=== PATIENT | male | born 1930 | race Caucasian/White ===

== ENCOUNTER 2017-05-04 20:00 | Observation (INO) | payer OTHER ==
[~2017-05-04] VITALS: Ht 167.6 cm; Wt 64.9 kg
[~2017-05-04 20:00] MED LIST: CALC500C70 PO; FIBER PO; MULT-513 PO
[2017-05-04] MEDS ORDERED: ASPIRIN 81 MG CHEW PO STA (20:19)
[2017-05-04 20:57] LABS: BASO % 0.4 %; BASO ABS # 0.02 K/uL (0-0.2); COMPLETE YES; EOS % 3.1 %; IG% 0.2 %; LYMPH % 24.2 %; LYMPH ABS # 1.17 K/uL (1.2-3.4); MEAN CELL VOLUME 90.7 fL (80-100); MEAN CORPUSCULAR HEMOGLOBIN 30.6 pg (25-34); MEAN CORPUSCULAR HGB CONC 33.7 g/dl (32-36); MONO % 4.8 %; NEUT % 67.3 %; PLATELET COUNT 217 K/uL (130-400); RED BLOOD COUNT 3.86 M/uL (4.7-6.1); WHITE BLOOD COUNT 4.83 K/uL (4.8-10.8)
--- NOTE | 2017-05-04 21:04 | DIAGNOSTIC IMAGING REPORT ---
CHEST ONE VIEW PORTABLE CLINICAL HISTORY: Chest pain. COMPARISON STUDY: Chest radiograph April 25, 2015. FINDINGS: There is no pneumothorax or pleural effusion. There is no consolidation to suggest pneumonia. Pulmonary vascularity is normal. Cardiomediastinal silhouette is normal. The appearance of the chest is unchanged. IMPRESSION: No acute cardiopulmonary findings. Electronically signed by: Richy Patricio M.D. 05/04/2017 9:03 PM Dictated Date/Time: 05/04/2017 9:02 PM
[2017-05-04 21:21] LABS: BLOOD UREA NITROGEN 16 mg/dl (7-18); BUN/CREATININE RATIO 16.7 (10-20); CALCIUM 8.6 mg/dl (8.5-10.1); CARBON DIOXIDE 25 mmol/L (21-32); CHLORIDE 110 mmol/L (98-107); CREATININE 0.95 mg/dl (0.60-1.40); GLUCOSE 90 mg/dl (70-99); POTASSIUM 3.8 mmol/L (3.5-5.1); SODIUM 143 mmol/L (136-145)
[2017-05-04 21:26] LABS: CKMB/CK RATIO 3.7 (0-3.0)
[2017-05-04] MEDS ORDERED: ACETAMINOPHEN 325 MG TAB PO PRN (23:15)
[2017-05-04] MEDS ORDERED: ONDANSETRON INJ 2 MG/ML 2 ML VIAL IV PRN (23:15)
[2017-05-04] MEDS ORDERED: NITROGLYCERIN 0.4 MG SL PER TAB CHARGE SL PRN (23:15)
--- NOTE | 2017-05-04 23:34 | History and Physical ---
History & Physical Date & Time of Service: May 04, 2017 at 22:47 Chief Complaint: Chest Pain, High Bp Primary Care Physician: Arnoldo Locke M.D. History of Present Illness Source: patient Mr Farris is an 87 year old male who presents with chest pain to the ER. Site - across the front of his chest Onset - 1700 yesterday, [id number] today Character - heavy pressure Radiation - none Associated - No nausea, diaphoresis or shortness of breath. He is concerned his sBP was raised on both of these occasions to approx. 190 Timing - lasted for 10 minutes, gone by the time he arrived in ER Exacerbating - worse on exertion Severity - 2-3/10 at first, worse 5/10, currently no pain Called PCP this morning but couldn't get an appointment. Appeared to improve however but again on exertion around sBP 193. He denies any orthopnea, PND or claudication. Had similar chest pains 4-5 years ago - checked by his PCP and diagnosed with muscle spasm. Went away in a couple of days. Unsure whether this feels the same. 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) Immunizations History of Influenza Vaccine: N/A History of Tetanus Vaccine?: Yes Tetanus Immunization Date: May 20, 2007 History of Pneumococcal: Yes Pneumococcal Date: May 20, 2005 History of Hepatitis B Vaccine: No Multi-Drug Resistant Organisms History of MDRO: No Allergies Coded Allergies: No Known Allergies (Verified , 06/08/06) Uncoded Allergies: NKA (Allergy, Unknown, 03/19/15) No Known Allergies Home Medications Scheduled Calcium/Vitamin D (Os-Vince 500 Plus D), 2 TAB PO DAILY Multivitamins/Minerals (Mvi With Minerals), 1 TAB PO DAILY [Fiber], 2 TABLETS PO DAILY Review of Systems Constitutional: No fever, No chills Eyes: No worsening of vision ENT: No hearing loss Respiratory: No cough, No sputum, No wheezing, No shortness of breath Cardiovascular: No chest pain, No orthopnea Abdomen: No pain, No nausea, No vomiting, No diarrhea, No constipation, No GI bleeding Musculoskeletal: No joint pain, No muscle pain Genitourinary - Male: No hematuria, No dysuria, No urinary frequency, No urinary urgency Integumentary: No rash, No itch Physical Exam Vital Signs Date Time Temp Pulse Resp B/P (MAP) Pulse Ox O2 Delivery O2 Flow Rate FiO2 05/04/17 21:42 61 15 151/70 100 Room Air 05/04/17 20:29 Room Air 05/04/17 20:23 73 05/04/17 20:02 36.8 86 20 152/84 96 Room Air General Appearance: WD/WN, no apparent distress Eyes: normal inspection, PERRL, EOMI Neck: supple, no JVD Respiratory/Chest: chest non-tender, lungs clear, normal breath sounds, no respiratory distress, no accessory muscle use Cardiovascular: regular rate, rhythm, no edema, no murmur, normal peripheral pulses Abdomen/GI: normal bowel sounds, non tender, soft Back: no CVA tenderness Extremities/Musculoskelatal: no calf tenderness, normal capillary refill, no pedal edema 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, no motor/sensory deficits, alert, oriented x 3 Skin: normal color, warm/dry, no rash Diagnostics Laboratory Results Results Past 24 Hours Test 05/04/17 20:35 Range/Units White Blood Count 4.83 4.8-10.8 K/uL Red Blood Count 3.86 4.7-6.1 M/uL Hemoglobin 11.8 14.0-18.0 g/dL Hematocrit 35.0 42-52 % Mean Corpuscular Volume 90.7 80-100 fL Mean Corpuscular Hemoglobin 30.6 25-34 pg Mean Corpuscular Hemoglobin Concent 33.7 32-36 g/dl Platelet Count 217 130-400 K/uL Mean Platelet Volume 9.0 7.4-10.4 fL Neutrophils (%) (Auto) 67.3 % Lymphocytes (%) (Auto) 24.2 % Monocytes (%) (Auto) 4.8 % Eosinophils (%) (Auto) 3.1 % Basophils (%) (Auto) 0.4 % Neutrophils # (Auto) 3.25 1.4-6.5 K/uL Lymphocytes # (Auto) 1.17 1.2-3.4 K/uL Monocytes # (Auto) 0.23 0.11-0.59 K/uL Eosinophils # (Auto) 0.15 0-0.5 K/uL Basophils # (Auto) 0.02 0-0.2 K/uL RDW Standard Deviation 41.5 36.4-46.3 fL RDW Coefficient of Variation 12.6 11.5-14.5 % Immature Granulocyte % (Auto) 0.2 % Immature Granulocyte # (Auto) 0.01 0.00-0.02 K/uL Sodium Level 143 136-145 mmol/L Potassium Level 3.8 3.5-5.1 mmol/L Chloride Level 110 98-107 mmol/L Carbon Dioxide Level 25 21-32 mmol/L Anion Gap 8.0 3-11 mmol/L Blood Urea Nitrogen 16 7-18 mg/dl Creatinine 0.95 0.60-1.40 mg/dl Est Creatinine Clear Calc Drug Dose 51.3 ml/min Estimated GFR () 83.7 Estimated GFR (Non- 72.2 BUN/Creatinine Ratio 16.7 10-20 Random Glucose 90 70-99 mg/dl Calcium Level 8.6 8.5-10.1 mg/dl Total Creatine Kinase 147 39-308 U/L Creatine Kinase MB 5.5 0.5-3.6 ng/ml Creatine Kinase MB Ratio 3.7 0-3.0 Troponin I < 0.015 0-0.045 ng/ml Diagnostic Radiology CHEST ONE VIEW PORTABLE CLINICAL HISTORY: Chest pain. COMPARISON STUDY: Chest radiograph April 25, 2015. FINDINGS: There is no pneumothorax or pleural effusion. There is no consolidation to suggest pneumonia. Pulmonary vascularity is normal. Cardiomediastinal silhouette is normal. The appearance of the chest is unchanged. IMPRESSION: No acute cardiopulmonary findings. Electronically signed by: Richy Patricio M.D. 05/04/2017 9:03 PM Dictated Date/Time: 05/04/2017 9:02 PM EKG NSR 72 bpm no ischemic changes Impression Assessment and Plan 87 year old with exertional chest pain. Chest pain rule out NH - serial troponin overnight - NPO after midnight except meds - consider stress echo tomorrow - nitro for further chest pain VTE Prophylaxis - heparin 5000 units TID Code - Full as per patient wishes Disposition - observation status to be monitored in telemetry overnight Resident Physician Supervision Note: I was present with Dr. Kilgore during the history and exam. I discussed the case with the resident and agree with the findings and plan as documented in the note. Any exceptions or clarifications are listed here: 87 y/o M - no documented history of CAD - presents with exertional CP -brought abut with mild activity - initial workup is negative OE AAO x 3 S1,2 R CTAB NT, ND, BS+ No CCE P: Trop x 3 monitor overnight ASA Should likely have a stress although there should be an option for outpatient testing provided he improves clinically Documented By: Aubrey Marquez Level of Care Telemetry Resuscitation Status FULL RESUSCITATION VTE Prophylaxis VTE Risk Assessment Done? Y/N: Yes Risk Level: Moderate Given or contraindicated: Unfractionated heparin SQ Resident Tracking Resident Involvement: Resident Care Provided Care Provided: Adult ED
[2017-05-05] VITALS (10 sets, daily range): BP systolic 106–192; BP diastolic 62–77; PULSE 48–75; TEMP 36.3–37.5; O2SAT 95–99; Ht 167.6 cm; Wt 64.9 kg
--- NOTE | 2017-05-05 00:56 | EMERGENCY ROOM VISIT NOTE ---
History Report prepared by Scribe: Nila Persaud Under the Supervision of: Dr. Angel Benavidez D.O. First contact with patient: 20:08 Chief Complaint: CARDIAC ASSESSMENT Stated Complaint: CHEST PAIN, HIGH BP History of Present Illness The patient is an 87 year old male who presents to the Emergency Room with complaints of intermittent chest pain that started around 1400 yesterday. He states he was taking out his trash cans when the pain started. He denies any shortness of breath. He notes when he got back inside, he checked his blood pressure and it was around 150 systolic. Today his BP was 190 when he checked at home, so he called his doctor's office and states he was referred here to the ED for further evaluation. The patient denies any chronic medical problems. He states he takes no daily medications. Pt denies headache, change in vision, fevers, nausea, vomiting, diarrhea, pain with urination, and melena. Source of History: patient Onset: 1400 yesterday Position: chest Timing: intermittent Modifying Factors (Worsening): exertion Associated Symptoms: No fevers, No headache, No SOB, No nausea, No vomiting , No melena, No diarrhea, No urinary symptoms Review of Systems See HPI for pertinent positives & negatives. A total of 10 systems reviewed and were otherwise negative. Past Medical & Surgical Medical Problems: (1) Chest pain, rule out acute myocardial infarction (2) No significant past medical history Social History Smoking Status: Never Smoker Smokeless Tobacco Use: No Alcohol Use: none Drug Use: none Marital Status: Housing Status: lives with significant other Occupation Status: retired Current/Historical Medications Scheduled Calcium/Vitamin D (Os-Vince 500 Plus D), 2 TAB PO DAILY Multivitamins/Minerals (Mvi With Minerals), 1 TAB PO DAILY [Fiber], 2 TABLETS PO DAILY Allergies Coded Allergies: No Known Allergies (Verified , 06/08/06) Uncoded Allergies: NKA (Allergy, Unknown, 03/19/15) No Known Allergies Physical Exam Vital Signs Date Time Temp Pulse Resp B/P (MAP) Pulse Ox O2 Delivery O2 Flow Rate FiO2 05/04/17 21:42 61 15 151/70 100 Room Air 05/04/17 20:29 Room Air 05/04/17 20:23 73 05/04/17 20:02 36.8 86 20 152/84 96 Room Air Physical Exam GENERAL: Patient is sitting up in bed, alert, well appearing, well nourished, no distress, non-toxic EYE EXAM: normal conjunctiva OROPHARYNX: no exudate, no erythema, lips, buccal mucosa, and tongue normal and mucous membranes are moist NECK: supple, no nuchal rigidity, no adenopathy, non-tender LUNGS: Clear to auscultation. Normal chest wall mechanics HEART: no murmurs, S1 normal and S2 normal ABDOMEN: abdomen soft, non-tender, normo-active bowel sounds, no masses, no rebound or guarding. BACK: Back is symmetrical on inspection and there is no deformity, no midline tenderness, no CVA tenderness. SKIN: no rashes and no bruising UPPER EXTREMITIES: upper extremities are grossly normal. Radial pulses are equal bilaterally. LOWER EXTREMITIES: No pitting edema. NEURO EXAM: Normal sensorium, cranial nerves II-XII grossly intact, normal speech, no gross weakness of arms, no gross weakness of legs. Gross sensation intact. Medical Decision & Procedures ER Provider Diagnostic Interpretation: Radiology results as stated below per my review and the radiologist's interpretation: CHEST ONE VIEW PORTABLE CLINICAL HISTORY: Chest pain. COMPARISON STUDY: Chest radiograph April 25, 2015. FINDINGS: There is no pneumothorax or pleural effusion. There is no consolidation to suggest pneumonia. Pulmonary vascularity is normal. Cardiomediastinal silhouette is normal. The appearance of the chest is unchanged. IMPRESSION: No acute cardiopulmonary findings. Electronically signed by: Richy Patricio M.D. 05/04/2017 9:03 PM Laboratory Results 05/04/17 20:35 Red Blood Count 3.86, Mean Corpuscular Volume 90.7, Mean Corpuscular Hemoglobin 30.6, Mean Corpuscular Hemoglobin Concent 33.7, Mean Platelet Volume 9.0, Neutrophils (%) (Auto) 67.3, Lymphocytes (%) (Auto) 24.2, Monocytes (%) (Auto) 4.8, Eosinophils (%) (Auto) 3.1, Basophils (%) (Auto) 0.4, Neutrophils # (Auto) 3.25, Lymphocytes # (Auto) 1.17, Monocytes # (Auto) 0.23, Eosinophils # (Auto) 0.15, Basophils # (Auto) 0.02 05/04/17 20:35 Test 05/04/17 20:35 White Blood Count 4.83 K/uL (4.8-10.8) Red Blood Count 3.86 M/uL (4.7-6.1) Hemoglobin 11.8 g/dL (14.0-18.0) Hematocrit 35.0 % (42-52) Mean Corpuscular Volume 90.7 fL (80-100) Mean Corpuscular Hemoglobin 30.6 pg (25-34) Mean Corpuscular Hemoglobin Concent 33.7 g/dl (32-36) Platelet Count 217 K/uL (130-400) Mean Platelet Volume 9.0 fL (7.4-10.4) Neutrophils (%) (Auto) 67.3 % Lymphocytes (%) (Auto) 24.2 % Monocytes (%) (Auto) 4.8 % Eosinophils (%) (Auto) 3.1 % Basophils (%) (Auto) 0.4 % Neutrophils # (Auto) 3.25 K/uL (1.4-6.5) Lymphocytes # (Auto) 1.17 K/uL (1.2-3.4) Monocytes # (Auto) 0.23 K/uL (0.11-0.59) Eosinophils # (Auto) 0.15 K/uL (0-0.5) Basophils # (Auto) 0.02 K/uL (0-0.2) RDW Standard Deviation 41.5 fL (36.4-46.3) RDW Coefficient of Variation 12.6 % (11.5-14.5) Immature Granulocyte % (Auto) 0.2 % Immature Granulocyte # (Auto) 0.01 K/uL (0.00-0.02) Anion Gap 8.0 mmol/L (3-11) Est Creatinine Clear Calc Drug Dose 51.3 ml/min Estimated GFR () 83.7 Estimated GFR (Non- 72.2 BUN/Creatinine Ratio 16.7 (10-20) Calcium Level 8.6 mg/dl (8.5-10.1) Total Creatine Kinase 147 U/L (39-308) Creatine Kinase MB 5.5 ng/ml (0.5-3.6) Creatine Kinase MB Ratio 3.7 (0-3.0) Troponin I < 0.015 ng/ml (0-0.045) Laboratory results per my review. Medications Administered Medications (Trade) Dose Ordered Sig/Greer Route Start Time Stop Time Status Last Admin Dose Admin Aspirin (Aspirin Chew) 324 mg NOW STAT PO 05/04/17 20:19 05/04/17 20:20 DC 05/04/17 20:32 324 MG ECG Indication: chest pain Rate (beats per minute): 72 Rhythm: sinus rhythm Findings: no ectopy, other (normal axis) ED Course ED COURSE: Vital signs were reviewed and showed the patient is hypertensive. The patients medical record was reviewed The above diagnostic studies were performed and reviewed. ED treatments and interventions as stated above. 2014: The patient was evaluated in room B2. A complete history and physical examination was performed. 2013: Upon reevaluation, the patient is B2.I discussed my findings with the [ patient] and [] understands and agrees with the treatment plan. 2019: Aspirin 324 mg PO. 2227: I discussed the patients case with Dr. Marquez [facility] Hospitalist. The patient will be further evaluated. Based on the patients age, coexisting illnesses, exam and lab findings the decision to treat as an inpatient was made. The patient remained stable while under my care. The patient will be evaluated for further management. Medical Decision Medication Reconciliation: I attest that I have personally reviewed the patient' s current medication list. Blood pressure screening: Patient was found to have an elevated blood pressure and was referred to their primary doctor for recheck and further treatment. Differential diagnoses includes but is not limited to acute coronary syndrome, myocardial infarction, pericarditis, pulmonary embolus, aortic dissection, pneumonia, pneumothorax, musculoskeletal, shingles, esophageal. Patient is an 87-year-old male with no significant past mental history of presents the ER for exertional chest pain associated with hypertension. He currently has no complaints. Labs remarkable for an elevated CK-MB. Troponin was negative. EKG was nondiagnostic. Chest x-ray was unremarkable. He was given aspirin. He had no pain upon presentation. With the elevation in his CK- MB and follows. To watch him overnight especially with his age and symptoms concerning for ACS. Consults Time Called: 2224 Consulting Physician: Dr. Marquez [facility] Hospitalist Returned Call: [phone] I discussed the patients case with Dr. Marquez [facility] Hospitalist. The patient will be further evaluated Impression Primary Impression: Precordial chest pain Scribe Attestation The scribe's documentation has been prepared under my direction and personally reviewed by me in its entirety. I confirm that the note above accurately reflects all work, treatment, procedures, and medical decision making performed by me. Departure Information Dispostion Being Evaluated By Hospitalist Referrals Arnoldo Locke M.D. (PCP) Patient Instructions My [facility]
[2017-05-05] MEDS ORDERED: IV FLUIDS COMPLETED PRN (01:30)
[2017-05-05] MEDS ORDERED: METOPROLOL TARTRATE 1 MG/ML VIAL IV PRN (04:00)
[2017-05-05 07:20] LABS: PROTHROMBIN TIME (PATIENT) 10.9 SECONDS (9.0-12.0)
[2017-05-05 07:47] LABS: CHOLESTEROL 209 mg/dl (0-200); CHOLESTEROL/HDL RATIO 2.7; HDL CHOLESTEROL 78 mg/dl; LDL CHOLESTEROL CALCULATED 116 mg/dl; TRIGLYCERIDES 74 mg/dl (0-150); VERY LOW DENSITY LIPOPROT CALC 15 mg/dl
[2017-05-05] MEDS: ASPIRIN 81 MG ECTAB PO SCH (10:16)
[2017-05-05] MEDS: VALSARTAN 80 MG TAB PO SCH (10:20)
[2017-05-05] MEDS: HEPARIN SOD 5000 UNIT/0.5 ML CARP SQ SCH ×3 (10:27→21:23)
--- NOTE | 2017-05-05 11:55 | Procedure Note ---
Pre-Mod Sedation Assessment General Date of Moderate Sedation: May 05, 2017. Vital Signs: Vital Signs Past 12 Hours Date Time Temp Pulse Resp B/P (MAP) Pulse Ox O2 Delivery O2 Flow Rate FiO2 05/05/17 08:09 Room Air 05/05/17 08:02 36.5 67 20 156/71 (99) 95 Room Air 05/05/17 04:10 Room Air 05/05/17 03:56 36.7 62 15 134/66 (88) 99 Room Air 05/05/17 01:22 173/64 (100) 05/05/17 00:20 36.5 63 18 192/77 98 Room Air 05/05/17 00:03 36.8 62 18 166/98 97 Review Cardiovascular: regular rate, rhythm, no edema Abdomen: normal bowel sounds, non tender Lungs: chest non-tender, lungs clear Airway Class: II Pre-Sedation Airway Assessment Oral Cavity: WNL Able to Visualize Vocal Cords: No Short Thick Neck: No Hx of Sleep Apnea: No Smoking Status: Never Smoker Mallampati Classification: Class II ASA Classification: Class II Procedure Planning Contraindications-for Mod Sed: None Yes Notes The planned sedation has been discussed with the patient and consent obtained. I have identified the patient, determined the appropriateness of sedation and have assessed the patient immediately prior to the procedure. All medicine(s) and interventions are by my order.
--- NOTE | 2017-05-05 11:55 | EXERCISE STRESS ECHO ---
*NOTICE TO RECEIVING [employer] This information is strictly Confidential and protected under [place] law. [place] law prohibits you from making any further disclosure of this information unless further disclosure is expressly permitted by the written consent of the person to whom it pertains or is authorized by law. A general authorization for the release of medical or other information is not sufficient for this purpose. Hospital accepts no responsibility if the information is made available to any other person, INCLUDING THE PATIENT. Interpretation Summary * Name: DAVID GAMEZ Study Date: 05/05/2017 08:39 AM BP: 149/65 mmHg * Patient Location: C.2T\S\S233\S\1 HR: 64 * : 1930 (M/d/yyyy) Gender: Male Height: 66 in * Age: 87 yrs Ethnicity: CA Weight: 143 lb * Ordering Physician: Timmy Rios * Referring Physician: Self, Referred * Performed By: Mame Main RDCS * * Reason For Study: CHEST PAIN * BSA: 1.7 m2 * -- Conclusions -- * 1. Positive stress echo for ischemia at 101% MPHR. Mild stress induced inferior hypokinesis. * 2. Positive stress ECG. [address] depressions in inferior leads persisting 6 min into recovery. * 3. Normal functional capacity for age. Exercised 3:30 on standard bogdan. Acheived 5.2 METS. No exercise induced chest pain. * 4. Normal resting LV size and function. LVEF 60-65%. Mild concentric LVH. Normal RV size and function. Aortic sclerosis with mild AI. * 5. No prior studies for comparison. Procedure Details * ECHOEX, CPT #22900 Left Ventricle * The left ventricle is grossly normal size. * There is mild concentric left ventricular hypertrophy. * Ejection Fraction = 60-65%. * The left ventricular wall motion is normal at rest. * Mild inferior wall hypokinesis post stress Right Ventricle * The right ventricle is grossly normal size. * The right ventricular systolic function is normal as assessed by tricuspid annular plane systolic excursion (TAPSE) (normal >1.5 cm). Atria * The left atrial size is normal. * Right atrial size is normal. * No ASD detected; PFO is not assessed. Mitral Valve * The mitral valve is grossly normal. * There is mild mitral annular calcification. * There is no mitral valve stenosis. * There is trace mitral regurgitation. Tricuspid Valve * There is no tricuspid stenosis. * There is trace tricuspid regurgitation. Aortic Valve * Aortic valve sclerosis mild, without significant aortic valvular stenosis. * The aortic valve is trileaflet. * Mild aortic regurgitation. Pulmonic Valve * The pulmonary valve is inadequately visualized, but the Doppler data is adequate for interpretation. * There is no significant pulmonary regurgitation. Great Vessels * The aortic root and proximal ascending aorta are normal sized. Pericardium * There is no pericardial effusion. Stress Parameters * Normal baseline electrocardiogram. * There was a maximum 1mm ST segment depression in the inferior lead(s). * No arrhythmia were noted with stress. * Rest heart rate was '64' BPM. * Rest blood pressure was '149/65' * Maximum heart rate achieved was 136 bpm. * Maximum heart rate was 101 % of maximum age-predicted heart rate. * Maximum blood pressure was '205/75' * Total exercise time was '3:30' * Maximum exercise MET level achieved was '5.20' METS * Maximum treadmill speed was '2.50' miles per hour. * Maximum treadmill elevation was '12.00'% grade. * Exercise was terminated due to 'ACHIEVING TARGET HR' Left Ventricular Findings with Stress * The study was technically good with many images being of high quality. MMode 2D Measurements and Calculations IVSd 1.5 cm IVSs 2.1 cm LVIDd 3.6 cm LVIDs 2.5 cm LVPWd 1.3 cm LVPWs 2.0 cm IVS/LVPW 1.1 FS 30.1 % EDV(Teich) 56.1 ml ESV(Teich) 23.4 ml EF(Teich) 58.2 % EDV(cubed) 48.4 ml ESV(cubed) 16.6 ml EF(cubed) 65.8 % % IVS thick 45.4 % % LVPW thick 55.0 % LV mass(C)d 180.5 grams LV mass(C)dI 104.1 grams/m\S\2 LV mass(C)s 238.0 grams LV mass(C)sI 137.3 grams/m\S\2 SV(Teich) 32.7 ml SI(Teich) 18.8 ml/m\S\2 SV(cubed) 31.9 ml SI(cubed) 18.4 ml/m\S\2 LVAd ap4 24.2 cm\S\2 LVLd ap4 7.6 cm EDV(MOD-sp4) 62.2 ml EDV(sp4-el) 65.0 ml LVAs ap4 14.1 cm\S\2 LVLs ap4 6.4 cm ESV(MOD-sp4) 28.5 ml ESV(sp4-el) 26.5 ml EF(MOD-sp4) 54.1 % EF(sp4-el) 59.2 % LVAd ap2 19.9 cm\S\2 LVLd ap2 7.2 cm EDV(MOD-sp2) 45.1 ml EDV(sp2-el) 46.2 ml LVAs ap2 11.4 cm\S\2 LVLs ap2 6.1 cm ESV(MOD-sp2) 19.3 ml ESV(sp2-el) 18.3 ml EF(MOD-sp2) 57.2 % EF(sp2-el) 60.4 % LVLd %diff -5.18 % EDV(MOD-bp) 54.4 ml LVLs %diff -4.91 % ESV(MOD-bp) 24.1 ml EF(MOD-bp) 55.6 % SV(MOD-sp4) 33.6 ml SI(MOD-sp4) 19.4 ml/m\S\2 SV(MOD-sp2) 25.8 ml SI(MOD-sp2) 14.9 ml/m\S\2 SV(MOD-bp) 30.3 ml SI(MOD-bp) 17.5 ml/m\S\2 SV(sp4-el) 38.5 ml SI(sp4-el) 22.2 ml/m\S\2 SV(sp2-el) 27.9 ml SI(sp2-el) 16.1 ml/m\S\2 Doppler Measurements and Calculations MV E max antonio 64.2 cm/sec MV A max antonio 97.7 cm/sec MV E/A 0.66 MV dec time 0.33 sec AI max antonio 389.1 cm/sec AI max PG 60.6 mmHg AI dec slope 206.9 cm/sec\S\2 AI P1/2t 550.8 msec TR max antonio 191.0 cm/sec
[2017-05-05] MEDS ORDERED: HEPARIN SOD (PORCINE) 1000 UNIT/ML 10 ML VIAL ONE (11:56)
[2017-05-05] MEDS ORDERED: NiCARDipine HCL INJ 2.5 MG/ML 10 ML AMP ONE (11:56)
[2017-05-05] MEDS ORDERED: MIDAZOLAM HCL 1 MG/ML 2ML VIAL ONE (11:57)
[2017-05-05] MEDS ORDERED: NITROGLYCERIN/D5W 100MCG/ML 20ML SYR ONE (11:57)
[2017-05-05] MEDS ORDERED: FENTANYL CITRATE INJ 50 MCG/1 ML 2 ML VIAL ONE (11:57)
[2017-05-05] MEDS ORDERED: CLOPIDOGREL BISULFATE 300 MG TAB PO ONE (12:58)
--- NOTE | 2017-05-05 14:03 | Cardiac Catheterization ---
Procedure Note Procedure Date May 05, 2017. Pre-Procedure Diagnosis Positive Stress Test AUC Score 7 Post-Procedure Diagnosis Severe CAD, Successful PCI, Normal Intracardiac Pressures Procedure(s) Performed Coronary Angiography, Left Heart Cath, Drug Eluting Stent Addresser Erick Fan Blade Aligner(s) Devon Estimated Blood Loss 15 Medication(s) Clopidogrel, Fentanyl, Heparin, Nicardipine, Nitroglycerin, Versed, Lidocaine 1% Summary of Findings Indication: Unstable angina/Positive stress test Access: 6Fr Slender Right Radial Artery Catheters: Hawi, EBU 3.5 guide Findings: LM - Mildly calcified, 10-20% distal stenosis LAD - Moderate proximal calcification, 40-50% proximal segment disease, diffuse 70% disease in mid segment after take-off o 1st diagonal; distal luminal irregularities as wraps around apex. 1st diagonal with 20% ostial stenosis. Ramus - 30% proximal stenosis. Circumflex - Small, non-dominant, luminal irregularities. RCA - Dominant, luminal irregularities proximally; 90% proximal small R-PDA; Angiographically normal R-PLB LVEDP - 4 -- PCI -- Antithrombotic therapy: Heparin, Clopidogrel Procedure: LM cannulated with EBU 3.5 guide Prowater wire passed across lesion into distal vessel Mid LAD lesion predilated with 2.0 compliant balloon Dilated lesion stented with 2.5 x 26 Resolute PAGE Stent post-dilated with 2.5 noncompliant balloon IC vasodilators administered for spasm Post procedure ABIODUN 3 flow, stent well expanded with minimal residual stenosis and no apparent cardiac complications. Arterial Closure: TR Band Summary: 1. Severe 2 vessel coronary artery disease - 70% mid LAD - 90% proximal small R-PDA - 40-50% proximal LAD 2. Normal intracardiac filling pressure 3. 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 Plan to manage medically. If persistent angina can consider PDA angioplasty, +/- FFR of proximal LAD. Hemodynamics Rest Ao: 110/48/73 Final Ao: 121/47/75 LV: 116/4 Recommendations PCI without planned CABG Specimens None Radiation Exposure (mGy) 2200 Contrast (mls) 120 Visi Fluids (cc crystalloids) 100 NSS Drains None Anesthesia Moderate (12:01 - 12:55) Procedural Complication(s) None Disposition PCU ACC Data Cardiac Status Clinical evaluation leading to the procedure CAD Presntation: Unstable angina, Positive Stress Test Anginal Classification: CCS III Heart Failure: No, NYHA Class: CCS I Cardiogenic Shock w/in 24Hrs: No Cardiac Arrest w/in 24Hrs: No Imaging studies past 6 months: Yes Stress studies past 6 months: Yes Standard Exercise Stress Test: No, Yes - Positive Stress Echocardiogram: Yes - Positive, Risk/Extent of Ischemia (Intermediate) Coronary Anatomy Dominant: Right Left Main (% Stenosis): Distal (20) LAD (% Stenosis): Proximal (40-50), Mid (70%) D1 (% Stenosis): Ostial (20) Circumflex (% Stenosis): Normal RCA (% Stenosis): Normal R PDA (% Stenosis): Proximal (90) Diagnostic Physician's Name: Jaden Suarez MD Status: Elective Closure Device Percutaneous Entry Location: Radial Closure Device: Radial Band Recommendations: PCI without planned CABG PCI Indication: Unstable Angina, + Stress Test Lesion Segment Name: Mid LAD Culprit Artery: No Stenosis Prior to Rx (%): 70 Chronic Total Occlusion: No IVUS: No FFR: No Pre-Procedure ABIODUN Flow: 3 Previously Treated Lesion: No Lesion Complexity: Non-High/Non-C Lesion Length (mm): 24 Thrombus Present: No Bifurcation Lesion: No Guidewire Across Lesion: Yes Guidewire: Stenosis Post-Procedure (%): 0 Post-Procedure ABIODUN Flow: 3 Device(s) Deployed: Yes Intraprocedure Events Significant Dissection: No Perforation: No
--- NOTE | 2017-05-05 14:03 | Procedure Note ---
Post-Mod Sedation Assessment General Date of Moderate Sedation May 05, 2017. Vital Signs: Vital Signs Past 12 Hours Date Time Temp Pulse Resp B/P (MAP) Pulse Ox O2 Delivery O2 Flow Rate FiO2 05/05/17 08:09 Room Air 05/05/17 08:02 36.5 67 20 156/71 (99) 95 Room Air 05/05/17 04:10 Room Air 05/05/17 03:56 36.7 62 15 134/66 (88) 99 Room Air 05/05/17 01:22 173/64 (100) 05/05/17 00:20 36.5 63 18 192/77 98 Room Air 05/05/17 00:03 36.8 62 18 166/98 97 Review - Discharge Criteria Vital Signs Stable: Yes Alert/Oriented/Conversant: Yes Returned to Baseline Mental St: Yes Nausea Absent/Minimal: Yes Pain/Discomfort/Absent/Minimal: Yes Normal/Baseline Respirations: Yes Active Bleeding?: No Pt Received D/C Instructions: N/A Prescriptions Given: None Specific Proced. D/C Criteria Distal Pulses Present (Cardiac: Yes Groin site assessed-Card Cath: N/A Voided Prior To Discharge: N/A Discharged Patients Adult Escort/Transportation: Yes
[2017-05-05] MEDS ORDERED: POTASSIUM CHLORIDE 10 MEQ TABCR PO STA (14:29)
[2017-05-05] MEDS ORDERED: SODIUM CHLORIDE 0.9% 1000ML 1,000 ML IV SCH (17:00)
--- NOTE | 2017-05-05 17:00 | Cardiology Consultation ---
Cardiology Consultation Date of Consultation: May 05, 2017. Requesting Physician: Dr. Rios Reason for Consultation: Positive stress test Pt evaluation today including: conversation w/ patient, physical exam, chart review, lab review, review of studies, review of inpatient medication list, conversation w/ attending History of Present Illness Mr. Farris is a very pleasant 87-year-old man with a history of prostate cancer status post radical prostatectomy radiation, hormonal therapy who presented yesterday with acute onset of chest pain. Patient states he has been in usual state of health until last several weeks. During that time he had noted mild intermittent chest discomfort with more extreme exertion. Yesterday while carrying the trash to the curb patient developed persistent left-sided chest pain normal which lasted for 10-20 minutes and was relieved with rest. The catheter his PCPs office who recommended she presents emergency department. In the ED patient was chest pain free, hemodynamically stable but hypertensive to 170s. His initial EKG was unremarkable. Troponins have been negative x2 although CK-MB was mildly elevated. He has remained chest pain-free and has had no significant events on telemetry. A stress echo was obtained this morning, only to patient exercised 3 minutes and 30 seconds, achieving 5 Mets with no exercise-induced chest pain. He did half downsloping ST depressions in his inferior leads which persisted more than 6 minutes into recovery as well as a subtle inferior hypokinesis with stress. Due to typical chest pain stress test findings discussed additional risk stratification with cardiac catheterization with patient and was willing to proceed. Past Medical/Surgical History Prostate cancer 2006 Melanoma Past Surgeries: radiation and prostatectomy s/p left TKA Appendicectomy Left sided mastoidectomy Social History Smoking Status: Never Smoker History of Alcohol Use: No Review of Systems 10 point review of systems was completed and was otherwise negative unless stated in HPI Allergies Coded Allergies: No Known Allergies (Verified , 06/08/06) Medications Current Inpatient Medications Medications (Trade) Dose Ordered Sig/Greer Route Start Time Stop Time Status Last Admin Dose Admin Heparin Sodium (Porcine) (Heparin Sq 5000 Unit/0.5ml) 5,000 unit Q8 SQ 05/05/17 08:00 06/04/17 07:59 05/05/17 10:27 5,000 UNIT Acetaminophen (Tylenol Tab) 650 mg Q4H PRN PO 05/04/17 23:15 06/03/17 23:14 Ondansetron HCl (Zofran Inj) 4 mg Q6H PRN IV 05/04/17 23:15 06/03/17 23:14 Nitroglycerin (Nitrostat Tab) 0.4 mg UD PRN SL 05/04/17 23:15 06/03/17 23:14 Aspirin (Ecotrin Tab) 81 mg QAM PO 05/05/17 09:00 06/04/17 08:59 05/05/17 10:16 81 MG Miscellaneous (Iv Fluids Completed) 1 ea PRN PRN N/A 05/05/17 01:30 05/05/18 01:29 Metoprolol Tartrate (Lopressor Iv) 5 mg Q4 PRN IV 05/05/17 04:00 06/04/17 03:59 Valsartan (Diovan Tab) 80 mg QAM PO 05/05/17 09:00 06/04/17 08:59 05/05/17 10:20 80 MG Physical Exam Vital Signs Past 12 Hours Date Time Temp Pulse Resp B/P (MAP) Pulse Ox O2 Delivery O2 Flow Rate FiO2 05/05/17 13:05 65 16 125/60 (81) 98 Room Air 05/05/17 12:50 61 16 122/55 (77) 98 Room Air 05/05/17 12:00 Room Air 05/05/17 09:00 48 05/05/17 08:09 Room Air 05/05/17 08:02 36.5 67 20 156/71 (99) 95 Room Air 05/05/17 04:10 Room Air 05/05/17 03:56 36.7 62 15 134/66 (88) 99 Room Air General: Comfortable, no acute distress Eyes: Sclerae anicteric, extraocular movements intact HENT: Oropharynx clear mucous membranes moist Neck: Supple, no lymphadenopathy, no thyromegaly. Lungs: Clear to auscultation bilaterally, no rhonchi or wheezes Cardiac: Regular rate and rhythm, no murmurs, rubs or gallops. No JVD. No peripheral edema. Extremities well perfused. Vascular: Normal carotid upstrokes, no bruits. 2+ radial, femoral, DP and PT pulses. No varicosities. Abdomen: Soft, nontender, nondistended positive bowel sounds. No hepatosplenomegaly Musculoskeletal: Normal gait. No joint deformities Skin: No rashes or lesions. Neuro: Cranial nerves 2-12 grossly intact, remainder exam nonfocal Psych: Alert orient x3, normal affect and mood Data Laboratory Results: Last 24 Hours Test 05/04/17 20:35 05/05/17 06:39 White Blood Count 4.83 K/uL Red Blood Count 3.86 M/uL Hemoglobin 11.8 g/dL Hematocrit 35.0 % Mean Corpuscular Volume 90.7 fL Mean Corpuscular Hemoglobin 30.6 pg Mean Corpuscular Hemoglobin Concent 33.7 g/dl Platelet Count 217 K/uL Mean Platelet Volume 9.0 fL Neutrophils (%) (Auto) 67.3 % Lymphocytes (%) (Auto) 24.2 % Monocytes (%) (Auto) 4.8 % Eosinophils (%) (Auto) 3.1 % Basophils (%) (Auto) 0.4 % Neutrophils # (Auto) 3.25 K/uL Lymphocytes # (Auto) 1.17 K/uL Monocytes # (Auto) 0.23 K/uL Eosinophils # (Auto) 0.15 K/uL Basophils # (Auto) 0.02 K/uL RDW Standard Deviation 41.5 fL RDW Coefficient of Variation 12.6 % Immature Granulocyte % (Auto) 0.2 % Immature Granulocyte # (Auto) 0.01 K/uL Sodium Level 143 mmol/L Potassium Level 3.8 mmol/L Chloride Level 110 mmol/L Carbon Dioxide Level 25 mmol/L Anion Gap 8.0 mmol/L Blood Urea Nitrogen 16 mg/dl Creatinine 0.95 mg/dl Est Creatinine Clear Calc Drug Dose 51.3 ml/min Estimated GFR () 83.7 Estimated GFR (Non- 72.2 BUN/Creatinine Ratio 16.7 Random Glucose 90 mg/dl Calcium Level 8.6 mg/dl Total Creatine Kinase 147 U/L Creatine Kinase MB 5.5 ng/ml Creatine Kinase MB Ratio 3.7 Troponin I < 0.015 ng/ml < 0.015 ng/ml Prothrombin Time 10.9 SECONDS Prothromb Time International Ratio 1.0 Triglycerides Level 74 mg/dl Cholesterol Level 209 mg/dl HDL Cholesterol 78 mg/dl LDL Cholesterol, Calculated 116 mg/dl VLDL Cholesterol, Calculated 15 mg/dl Cholesterol/HDL Ratio 2.7 Imaging: Stress echo as discussed above. Normal resting LV function. EKG: Normal sinus rhythm without ST changes Telemetry reviewed: No pauses or tachyarrhythmia events Cardiac catheterization: Small right PDA with 90% proximal stenosis, proximal LAD with 40-50% calcified stenosis, diffuse 70% mid LAD stenosis. PCI with 2.5 x 26 mm resolute PAGE Assessment & Plan 1. Unstable angina 2. Severe 2 vessel coronary artery disease 3. PCI to mid LAD with 1 drug-eluting stent 4. Dyslipidemia 5. Anemia Patient now status post cardiac catheterization showing severe 2 vessel disease including severe mid LAD disease which was treated with PCI and drug-eluting stent. small PDA disease not amenable to stenting and will plan to manage medically. If in the future patient were to have recurrent typical angina consider PTCA PDA. In the short term going forward: --monitor on telemetry overnight --continue dual antiplatelet therapy with aspirin and Plavix --start high intensity statin --continue ARB, low-dose beta-aurelio as BP/heart rate allow --consult cardiac rehab Is stable overnight okay for discharge in a.m.
--- NOTE | 2017-05-05 22:17 | Hospitalist Progress Note ---
Hospitalist Progress Note Date of Service May 05, 2017. Subjective Pt evaluation today including: conversation w/ patient, chart review, lab review, conversation w/ network consultant Patient had no complaints after cardiac catheterization then placement in mid LAD All Other Systems: Reviewed and Negative Medications Medications (Trade) Dose Ordered Sig/Greer Route Start Time Stop Time Status Last Admin Dose Admin Heparin Sodium (Porcine) (Heparin Sq 5000 Unit/0.5ml) 5,000 unit Q8 SQ 05/05/17 08:00 06/04/17 07:59 05/05/17 21:23 5,000 UNIT Aspirin (Ecotrin Tab) 81 mg QAM PO 05/05/17 09:00 06/04/17 08:59 05/05/17 10:16 81 MG Valsartan (Diovan Tab) 80 mg QAM PO 05/05/17 09:00 06/04/17 08:59 05/05/17 10:20 80 MG Heparin Sodium (Porcine) (Heparin Iv Bolus) 10,000 unit STK-MED ONCE .ROUTE 05/05/17 11:56 05/05/17 11:57 DC 05/05/17 11:56 8,000 UNIT Midazolam HCl (Versed Inj) 2 mg STK-MED ONCE .ROUTE 05/05/17 11:57 05/05/17 11:58 DC 05/05/17 11:57 1 MG Fentanyl Citrate (Fentanyl Inj) 100 mcg STK-MED ONCE .ROUTE 05/05/17 11:57 05/05/17 11:58 DC 05/05/17 11:57 50 MCG Clopidogrel Bisulfate (plAVix TAB) 600 mg STK-MED ONCE PO 05/05/17 12:58 05/05/17 12:59 DC 05/05/17 12:58 600 MG Potassium Chloride (Klor-Con M10) 20 meq NOW STAT PO 05/05/17 14:29 05/05/17 14:40 DC 05/05/17 15:57 20 MEQ Sodium Chloride 1,000 ml @ 100 mls/hr Q10H IV 05/05/17 17:00 05/06/17 00:29 05/05/17 21:22 100 MLS/HR Objective Vital Signs Date Time Temp Pulse Resp B/P (MAP) Pulse Ox O2 Delivery O2 Flow Rate FiO2 05/05/17 20:00 Room Air 05/05/17 19:33 37.1 68 18 150/65 (93) 96 Room Air 05/05/17 15:46 36.6 66 20 106/62 (77) 95 Room Air 05/05/17 15:32 Room Air 05/05/17 14:15 36.3 75 14 115/65 (82) 98 Room Air 05/05/17 13:05 65 16 125/60 (81) 98 Room Air 05/05/17 12:50 61 16 122/55 (77) 98 Room Air 05/05/17 12:00 Room Air 05/05/17 12:00 36.8 49 18 149/66 (93) 95 05/05/17 09:00 48 05/05/17 08:09 Room Air 05/05/17 08:02 36.5 67 20 156/71 (99) 95 Room Air 05/05/17 04:10 Room Air 05/05/17 03:56 36.7 62 15 134/66 (88) 99 Room Air 05/05/17 01:22 173/64 (100) 05/05/17 00:20 36.5 63 18 192/77 98 Room Air 05/05/17 00:03 36.8 62 18 166/98 97 05/04/17 23:55 62 18 166/98 97 Room Air Physical Exam General Appearance: WD/WN, no apparent distress Eyes: normal inspection ENT: hearing grossly normal Neck: trachea midline Respiratory/Chest: lungs clear Cardiovascular: regular rate, rhythm Abdomen: normal bowel sounds Extremities: normal inspection Neurologic/Psychiatric: alert Laboratory Results Last 24 Hours Test 05/05/17 06:39 05/05/17 12:34 Prothrombin Time 10.9 SECONDS Prothromb Time International Ratio 1.0 Magnesium Level 2.1 mg/dl Troponin I < 0.015 ng/ml Triglycerides Level 74 mg/dl Cholesterol Level 209 mg/dl HDL Cholesterol 78 mg/dl LDL Cholesterol, Calculated 116 mg/dl VLDL Cholesterol, Calculated 15 mg/dl Cholesterol/HDL Ratio 2.7 Kaolin Activated Coagulation Time 290 SECONDS Assessment and Plan (1) Coronary artery disease Assessment & Plan: Status post drug-eluting stent to the mid LAD will observe overnight. Patient is pain-free tomorrow possible discharge. (2) Uncontrolled hypertension Assessment & Plan: Diovan started with pressure presently controlled
[2017-05-06 03:10] VITALS: BP 128/68; PULSE 75; TEMP 36.9; O2SAT 94
[2017-05-06] MEDS: HEPARIN SOD 5000 UNIT/0.5 ML CARP SQ SCH (06:09)
[2017-05-06 06:30] LABS: HEMATOCRIT 33.2 % (42-52); MEAN CELL VOLUME 90.7 fL (80-100); MEAN CORPUSCULAR HEMOGLOBIN 30.9 pg (25-34); MEAN PLATELET VOLUME 8.7 fL (7.4-10.4); PLATELET COUNT 187 K/uL (130-400); RED BLOOD COUNT 3.66 M/uL (4.7-6.1); WHITE BLOOD COUNT 5.29 K/uL (4.8-10.8)
[2017-05-06 07:07] LABS: BUN/CREATININE RATIO 18.5 (10-20); CALCIUM 8.2 mg/dl (8.5-10.1); CREATININE 0.94 mg/dl (0.60-1.40); PHOSPHORUS 2.9 mg/dl (2.5-4.9); POTASSIUM 4.2 mmol/L (3.5-5.1)
[2017-05-06] MEDS: ASPIRIN 81 MG ECTAB PO SCH (07:41)
[2017-05-06] MEDS: VALSARTAN 80 MG TAB PO SCH (07:41)
[2017-05-06 07:50] VITALS: BP 135/68; PULSE 84; TEMP 37.4; O2SAT 93
[2017-05-06] MEDS ORDERED: CLOPIDOGREL BISULFATE 75 MG TAB PO SCH (09:00)
[2017-05-06] MEDS ORDERED: ATORVASTATIN 40 MG TAB PO SCH (09:00)
[2017-05-06] MEDS ORDERED: [UNRECOGNIZED DRUG - CODE] PO (09:06)
[2017-05-06] MEDS ORDERED: PLV75 PO (09:06)
[2017-05-06] MEDS ORDERED: DVN80 PO (09:06)
[2017-05-06] MEDS ORDERED: LPT40 PO (09:06)
--- NOTE | 2017-05-06 09:10 | Discharge Instructions ---
Discharge Instructions Date of Service May 06, 2017. Admission Reason for Admission: Chest Pain, Rule Out Myocardial Infarction Discharge Discharge Diagnosis / Problem: Unstable angina Discharge Goals Goal(s): Improve function Activity Recommendations Activity Limitations: resume your previous activity . Instructions / Follow-Up Instructions / Follow-Up Dr. Suarez 2-3 weeks Primary Care Doctor 1 week Current Hospital Diet Patient's current hospital diet: AHA Diet (Heart Healthy) Discharge Diet Recommended Diet: AHA Diet (Heart Healthy) Pending Studies Studies pending at discharge: no Laboratory Results Lipid Panel Test 05/05/17 06:39 Range/Units Triglycerides Level 74 0-150 mg/dl Cholesterol Level 209 H 0-200 mg/dl HDL Cholesterol 78 mg/dl Cholesterol/HDL Ratio 2.7 LDL Cholesterol, Calculated 116 mg/dl Medical Emergencies . Who to Call and When: Medical Emergencies: If at any time you feel your situation is an emergency, please call 911 immediately. . Non-Emergent Contact Non-Emergency issues call your: Primary Care Provider (1 week) . Past History Medical & Surgical History: (1) Coronary artery disease (2) Uncontrolled hypertension (3) Chest pain, rule out acute myocardial infarction . "Provider Documentation" section prepared by Timmy Rios. . VTE Core Measure Inpt VTE Proph given/why not?: Unfractionated heparin SQ
[2017-05-06] MEDS ORDERED: ASPEC81 PO (09:13)
[2017-05-06 09:20] VITALS: BP 135/68; PULSE 84; TEMP 37.4; O2SAT 93
--- NOTE | 2017-05-06 12:12 | Cardiology Follow-Up ---
Subjective Subjective Date of Service: May 06, 2017. Pt evaluation today including: conversation w/ patient, physical exam, chart review, lab review, review of studies, review of inpatient medication list Additional Details: No chest pain overnight. No pain at right radial artery access site. Tele reviewed -- no events. Problem List Medical Problems: (1) Precordial chest pain Status: Acute Review of Systems Constitutional: No fever, No chills Respiratory: No cough, No sputum Cardiac: No chest pain Abdomen: No pain, No nausea Neurologic: No memory loss Psychiatric: No depression symptoms Heme: No abnormal bleeding/bruising Endo: No fatigue Skin: No rash Objective Vital Signs Last Vital Signs Documentation Date Time Temp Pulse Resp B/P (MAP) Pulse Ox O2 Delivery O2 Flow Rate FiO2 05/06/17 09:20 37.4 84 20 93 Room Air 05/06/17 07:50 135/68 (90) Physical Exam: General Appearance: no apparent distress ENT: hearing grossly normal Neck: trachea midline Respiratory/Chest: lungs clear Cardiovascular: regular rate, rhythm Abdomen: normal bowel sounds Extremities: normal inspection, + pertinent finding (mild ecchymosis at right radial access site. no hematoma. intact distal pulse, sensation) Neurologic/Psychiatric: alert Skin: warm/dry, no rash Assessment and Plan 1. Unstable angina 2. Severe 2 vessel coronary artery disease 3. PCI to mid LAD with 1 drug-eluting stent 4. Dyslipidemia 5. Anemia Patient remains chest pain free. No access site complications. Labs stable. From a cardiac standpoint OK for discharge. Home on DAPT with ASA/Plavix Continue Statin On ARB Will titrate antianginal regimen at outpatient follow-up. Medications: Reported Home Medications Medications Dose Route/Sig Max Daily Dose Days Date Category Aspirin EC Low Dose (Aspirin) 81 Mg Ectab 81 Mg PO QAM 30 05/06/17 Rx Atenolol 1 Pow Pow 25 Mg PO DAILY 05/06/17 Rx Diovan (Valsartan) 80 Mg Tab 80 Mg PO QAM 30 05/06/17 Rx Atorvastatin Calcium (Atorvastatin) 40 Mg Tab 40 Mg PO QAM 30 05/06/17 Rx Clopidogrel (Clopidogrel Bisulfate) 75 Mg Tab 75 Mg PO QAM 30 05/06/17 Rx [Fiber] 2 Tablets PO DAILY 05/09/10 Reported Os-Vince 500 Plus D (Calcium/Vitamin D) Tab 2 Tab PO DAILY 08/11/07 Reported Mvi With Minerals (Multivitamins/Minerals) Tab 1 Tab PO DAILY 08/11/07 Reported Lab Results: 05/06/17 06:12 05/06/17 06:12 Test 05/05/17 12:34 05/06/17 06:12 Kaolin Activated Coagulation Time 290 SECONDS (94-140) Red Blood Count 3.66 M/uL (4.7-6.1) Mean Corpuscular Volume 90.7 fL (80-100) Mean Corpuscular Hemoglobin 30.9 pg (25-34) Mean Corpuscular Hemoglobin Concent 34.0 g/dl (32-36) RDW Standard Deviation 42.4 fL (36.4-46.3) RDW Coefficient of Variation 12.7 % (11.5-14.5) Mean Platelet Volume 8.7 fL (7.4-10.4) Anion Gap 7.0 mmol/L (3-11) Est Creatinine Clear Calc Drug Dose 50.9 ml/min Estimated GFR () 84.7 Estimated GFR (Non- 73.1 BUN/Creatinine Ratio 18.5 (10-20) Calcium Level 8.2 mg/dl (8.5-10.1) Phosphorus Level 2.9 mg/dl (2.5-4.9) Albumin 3.1 gm/dl (3.4-5.0)
--- NOTE | 2017-05-21 01:47 | DISCHARGE SUMMARY ---
Please see dictated H&P for full details of presentation. The patient is an 87-year-old who presented to the Emergency Room complaining of chest discomfort. He had a chest x-ray that showed no acute pulmonary findings. Original troponin was 0.015. He was brought in for possibility of stress echocardiogram. On hospital day #2, he was seen in consultation by Dr. Jaden Suarez. Troponins were mildly elevated and stress echo, the patient exercised 3 minutes 30 seconds, achieving 5 METs. No exercise induced chest pain. However, he did have downsloping ST depression in the inferior leads which persisted more than 6 minutes into recovery as well as subtle inferior hypokinesis with stress. The patient, based on his atypical symptoms and abnormal stress test, proceeded to cardiac catheterization where he was discovered to have significant cardiac disease, left main had 10-20% distal stenosis, left anterior descending had moderate 40-50 proximal segment disease, diffuse 70% disease in the mid segment and a 90% proximal small PDA. The patient underwent successful placement of a drug eluting stent in his mid LAD. He was loaded with Plavix and was discharged with aspirin and Plavix. The patient had no other difficulties and was discharged in stable condition on 05/06 on the following medications: Aspirin 81 mg daily, atenolol 25 mg daily, atorvastatin 40 mg daily, Plavix 75 mg daily, Diovan 80 mg daily, calcium with vitamin D 2 tabs daily, multivitamin 1 tab daily and fiber 2 tablets daily. He will follow up with his primary care doctor in 1 week and also his flower grader in 2 weeks. If he has any return of chest pain, followup with his flower grader has been discussed. Time spent in review of the chart, discussion with the patient is 31 minutes. Total cholesterol was 209, LDL was 116, creatinine was 0.94 on 05/06, the date of discharge.
== END 2017-05-06 10:15 | disposition home or self-care (01) ==
LOC: C.EDB 20:01 → C.2T 23:33 → ENRESERV 23:45
PROVIDERS: ADMIT Internal Medicine; ATTEND Internal Medicine
DX: I25.10 Atherosclerotic heart disease of native coronary artery without angina pectoris (principal); R07.2 Precordial pain; Z85.820 Personal history of malignant melanoma of skin; Z85.46 Personal history of malignant neoplasm of prostate; Z92.3 Personal history of irradiation; Z90.79 Acquired absence of other genital organ(s); Z90.89 Acquired absence of other organs; Z96.652 Presence of left artificial knee joint; Z87.891 Personal history of nicotine dependence; E78.5 Hyperlipidemia, unspecified; I10 Essential (primary) hypertension
CPT/HCPCS: 93458; C9600

== ENCOUNTER 2017-05-20 14:54 | Observation (INO) | payer OTHER ==
[2017-05-20] VITALS (10 sets, daily range): BP systolic 116–149; BP diastolic 54–75; PULSE 63–77; TEMP 36.4–36.7; O2SAT 94–99; Ht 167.6 cm; Wt 66.3 kg
[~2017-05-20] VITALS: Ht 167.6 cm; Wt 66.3 kg
[~2017-05-20 14:54] MED LIST changes: +ASPEC81 PO; +DVN80 PO; +LPT40 PO; +PLV75 PO; +[UNRECOGNIZED DRUG - CODE] PO
--- NOTE | 2017-05-20 15:19 | EMERGENCY ROOM VISIT NOTE ---
History Report prepared by Rigo: Mame Adkins Under the Supervision of: Dr. Moiz Lewis D.O. First contact with patient: 15:05 Chief Complaint: CHEST PAIN Stated Complaint: CHEST PAIN Nursing Triage Summary: Pt sent by Andrea Arzola. Pt states he developed pain across his chest last night. Pt states last week had a cardiac cath by Dr. Suarez. Pt reports he is to have a cardiac cath today and was told to come here. History of Present Illness The patient is an 87 year old male who presents to the Emergency Room with complaints of resolved chest pain that began last evening. The patient states that last Thursday he had a cardiac catheterization that showed two blockages. He states that he had one artery stented, but the other artery was not stented. The patient states that he had the cardiac catheterization because he was experiencing chest pain. He states that last evening he developed chest pain that felt similar to his previous chest pain. The patient states that his pain radiates across his chest. He denies any shortness of breath, nausea, vomiting , or swelling in his lower extremities. The patient states that he saw Israel Arzola PA-C Cardiology 20 minutes prior to arrival and was sent to the emergency department for a cardiac catheterization. He states that he was just started on Plavix this week. Source of History: patient Onset: last evening Position: chest Timing: resolved Associated Symptoms: No SOB, No nausea, No vomiting Review of Systems See HPI for pertinent positives & negatives. A total of 10 systems reviewed and were otherwise negative. Past Medical & Surgical Medical Problems: (1) Chest pain, rule out acute myocardial infarction (2) Coronary artery disease (3) No significant past medical history (4) Uncontrolled hypertension Family History Non contributory secondary to age Social History Smoking Status: Former Smoker Alcohol Use: none Drug Use: none Marital Status: Housing Status: lives with significant other Occupation Status: retired Current/Historical Medications Scheduled Aspirin (Aspirin EC Low Dose), 81 MG PO QAM Atenolol (Atenolol), 25 MG PO DAILY Atorvastatin (Atorvastatin Calcium), 40 MG PO QAM Calcium/Vitamin D (Os-Vince 500 Plus D), 2 TAB PO DAILY Clopidogrel Bisulfate (Clopidogrel), 75 MG PO QAM Multivitamins/Minerals (Mvi With Minerals), 1 TAB PO DAILY Valsartan (Diovan), 80 MG PO QAM [Fiber], 2 TABLETS PO DAILY Allergies Coded Allergies: No Known Allergies (Verified , 05/20/17) Physical Exam Vital Signs Date Time Temp Pulse Resp B/P (MAP) Pulse Ox O2 Delivery O2 Flow Rate FiO2 05/20/17 17:45 36.4 63 18 123/68 99 Room Air 05/20/17 17:30 60 16 36/84 (68) 95 Room Air 05/20/17 17:23 60 16 140/84 (102) 95 Room Air 05/20/17 15:34 36.6 71 15 152/76 98 05/20/17 15:29 71 15 98 05/20/17 15:24 71 15 97 05/20/17 15:23 98 Room Air 05/20/17 15:19 67 14 05/20/17 15:14 74 21 05/20/17 15:13 73 05/20/17 15:07 152/76 05/20/17 14:56 36.6 70 18 106/63 99 Room Air Physical Exam GENERAL: Patient is awake, alert, and in no acute distress. Patient is resting comfortably and showing no signs of anxiety EYES: The conjunctivae are clear. The pupils are round and reactive. EARS, NOSE, MOUTH AND THROAT: The nose is without any evidence of any deformity. Mucous membranes are moist tongue is midline NECK: The neck is nontender and supple. RESPIRATORY: Normal respiratory effort is noted there is no evidence of wheezing rhonchi or rales CARDIOVASCULAR: Regular rate and rhythm noted there no murmurs rubs or gallops normal S1 normal S2 GASTROINTESTINAL: The abdomen is soft. Bowel sounds are present in all quadrants. Abdomen is nontender MUSCULOSKELETAL/EXTREMITIES: There is no evidence of gross deformity full range of motion is noted in the hips and shoulders SKIN: No pedal edema noted, ecchymosis over the right wrist. Pulses are strong and symmetric, consistent with recent catheterization. NEUROLOGIC: Patient is awake alert and oriented x3. Medical Decision & Procedures ER Provider Diagnostic Interpretation: X-ray results as stated below per interpretation by me and the radiologist. SINGLE VIEW CHEST CLINICAL HISTORY: Atypical chest pain. FINDINGS: An AP, portable, upright chest radiograph is compared to study dated 05/04/2017 appear The examination is degraded by portable technique and patient rotation. The cardiomediastinal silhouette is unremarkable. There is mild atherosclerotic calcification of the thoracic aorta. Foci of scarring versus atelectasis are present in both lungs. No airspace consolidation is seen typical for pneumonia and there is no large pleural effusion. No pneumothorax is identified. The skeletal structures are osteopenic. The bony thorax is grossly intact. IMPRESSION: No acute cardiopulmonary abnormality. Electronically signed by: Hank Barnhart M.D. 05/20/2017 3:31 PM Dictated Date/Time: 05/20/2017 3:30 PM Laboratory Results 05/20/17 15:15 Red Blood Count 3.98, Mean Corpuscular Volume 92.7, Mean Corpuscular Hemoglobin 30.7, Mean Corpuscular Hemoglobin Concent 33.1, Mean Platelet Volume 9.6, Neutrophils (%) (Auto) 71.3, Lymphocytes (%) (Auto) 20.5, Monocytes (%) (Auto) 5.4, Eosinophils (%) (Auto) 2.3, Basophils (%) (Auto) 0.4, Neutrophils # (Auto) 5.17, Lymphocytes # (Auto) 1.49, Monocytes # (Auto) 0.39, Eosinophils # (Auto) 0.17, Basophils # (Auto) 0.03 05/20/17 15:15 Test 05/20/17 15:15 05/20/17 16:31 White Blood Count 7.26 K/uL (4.8-10.8) Red Blood Count 3.98 M/uL (4.7-6.1) Hemoglobin 12.2 g/dL (14.0-18.0) Hematocrit 36.9 % (42-52) Mean Corpuscular Volume 92.7 fL (80-100) Mean Corpuscular Hemoglobin 30.7 pg (25-34) Mean Corpuscular Hemoglobin Concent 33.1 g/dl (32-36) Platelet Count 258 K/uL (130-400) Mean Platelet Volume 9.6 fL (7.4-10.4) Neutrophils (%) (Auto) 71.3 % Lymphocytes (%) (Auto) 20.5 % Monocytes (%) (Auto) 5.4 % Eosinophils (%) (Auto) 2.3 % Basophils (%) (Auto) 0.4 % Neutrophils # (Auto) 5.17 K/uL (1.4-6.5) Lymphocytes # (Auto) 1.49 K/uL (1.2-3.4) Monocytes # (Auto) 0.39 K/uL (0.11-0.59) Eosinophils # (Auto) 0.17 K/uL (0-0.5) Basophils # (Auto) 0.03 K/uL (0-0.2) RDW Standard Deviation 42.9 fL (36.4-46.3) RDW Coefficient of Variation 12.5 % (11.5-14.5) Immature Granulocyte % (Auto) 0.1 % Immature Granulocyte # (Auto) 0.01 K/uL (0.00-0.02) Prothrombin Time 10.7 SECONDS (9.0-12.0) Prothromb Time International Ratio 1.0 (0.9-1.1) Activated Partial Thromboplast Time 23.4 SECONDS (21.0-31.0) Partial Thromboplastin Ratio 0.9 Anion Gap 4.0 mmol/L (3-11) Est Creatinine Clear Calc Drug Dose 39.9 ml/min Estimated GFR () 63.1 Estimated GFR (Non- 54.4 BUN/Creatinine Ratio 19.6 (10-20) Calcium Level 9.2 mg/dl (8.5-10.1) Total Bilirubin 0.6 mg/dl (0.2-1) Direct Bilirubin 0.2 mg/dl (0-0.2) Aspartate Amino Transf (AST/SGOT) 18 U/L (15-37) Alanine Aminotransferase (ALT/SGPT) 26 U/L (12-78) Alkaline Phosphatase 74 U/L (45-117) Total Creatine Kinase 76 U/L (39-308) Creatine Kinase MB 2.9 ng/ml (0.5-3.6) Creatine Kinase MB Ratio 3.8 (0-3.0) Troponin I < 0.015 ng/ml (0-0.045) Total Protein 7.4 gm/dl (6.4-8.2) Albumin 3.8 gm/dl (3.4-5.0) Lipase 400 U/L (73-393) Kaolin Activated Coagulation Time 246 SECONDS (94-140) Laboratory results per my review. Medications Administered Medications (Trade) Dose Ordered Sig/Greer Route Start Time Stop Time Status Last Admin Dose Admin Nicardipine HCl (Cardene Iv) 25 mg STK-MED ONCE .ROUTE 05/20/17 15:26 05/20/17 15:27 DC 05/20/17 15:26 25 MG Heparin Sodium (Porcine) (Heparin Iv Bolus) 10,000 unit STK-MED ONCE .ROUTE 05/20/17 15:26 05/20/17 15:27 DC 05/20/17 15:26 10,000 UNIT Fentanyl Citrate (Fentanyl Inj) 100 mcg STK-MED ONCE .ROUTE 05/20/17 15:26 05/20/17 15:27 DC 05/20/17 15:26 25 MCG Midazolam HCl (Versed Inj) 2 mg STK-MED ONCE .ROUTE 05/20/17 15:26 05/20/17 15:27 DC 05/20/17 15:26 1 MG Heparin Sodium/ Sodium Chloride (Heparin Sod/Ns 2 Units/Ml) 3,000 unit STK-MED ONCE .ROUTE 05/20/17 15:26 05/20/17 15:27 DC 05/20/17 15:26 3,000 UNIT Nitroglycerin/ Dextrose (Nitroglycerin/ D5w 100 Mcg/Ml 20ML SYRINGE) 2,000 mcg STK-MED ONCE .ROUTE 05/20/17 15:27 05/20/17 15:28 DC 05/20/17 15:27 2,000 MCG Adenosine (Adenoscan) 6 mg STK-MED ONCE .ROUTE 05/20/17 16:50 05/20/17 16:51 DC 05/20/17 16:50 6 MG Clopidogrel Bisulfate (plAVix TAB) 300 mg STK-MED ONCE PO 05/20/17 17:32 05/20/17 17:33 DC 05/20/17 17:32 300 MG Sodium Chloride 1,000 ml @ 100 mls/hr Q10H IV 05/20/17 17:45 05/21/17 03:44 05/20/17 22:28 100 MLS/HR ECG Indication: chest pain Rate (beats per minute): 73 Rhythm: normal sinus Findings: no ectopy, other (no acute ST segment abnormalities) Comparison ECG Date: 05/04/17 Change: no significant change ED Course 1506: The patient was evaluated in room B8. A complete history and physical examination were performed. 1530: The patient was taken to the cardiac catheterization lab by cardiology for further treatment and evaluation. Medical Decision Differential diagnosis: Etiologies such as cardiac ischemia, aortic dissection, pulmonary embolism, pneumonia, pneumothorax, musculoskeletal, infections, pericarditis, myocarditis , esophageal rupture, gastrointestinal, as well as others were entertained. Nursing notes reviewed. The patient is an 87-year-old male who presented to emergency department for evaluation of intermittent chest pain. The patient had a cardiac catheterization last week. He started having intermittent chest pain recently and was felt to be secondary to the recent cardiac catheterization. 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 The patient's pain appeared to be worsened with exertion. He has no pain at this time. I discussed the patient's laboratory and radiographic studies with him. He was evaluated by the cardiac catheterization team. Medication Reconcilliation Current Medication List: was personally reviewed by me Blood Pressure Screening Patient's blood pressure: Normal blood pressure Impression Primary Impression: Chest pain Additional Impression: S/P cardiac catheterization Scribe Attestation The scribe's documentation has been prepared under my direction and personally reviewed by me in its entirety. I confirm that the note above accurately reflects all work, treatment, procedures, and medical decision making performed by me. 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 (PCP) Problem Qualifiers Primary Impression: Chest pain Chest pain type: unspecified Qualified Codes: R07.9 - Chest pain, unspecified
[2017-05-20] MEDS ORDERED: HEPARIN SOD (PORCINE) 1000 UNIT/ML 10 ML VIAL ONE (15:26)
[2017-05-20] MEDS ORDERED: FENTANYL CITRATE INJ 50 MCG/1 ML 2 ML VIAL ONE (15:26)
[2017-05-20] MEDS ORDERED: NiCARDipine HCL INJ 2.5 MG/ML 10 ML AMP ONE (15:26)
[2017-05-20] MEDS ORDERED: MIDAZOLAM HCL 1 MG/ML 2ML VIAL ONE (15:26)
[2017-05-20] MEDS ORDERED: NITROGLYCERIN/D5W 100MCG/ML 20ML SYR ONE (15:27)
--- NOTE | 2017-05-20 15:32 | DIAGNOSTIC IMAGING REPORT ---
SINGLE VIEW CHEST CLINICAL HISTORY: Atypical chest pain. FINDINGS: An AP, portable, upright chest radiograph is compared to study dated 05/04/2017 appear The examination is degraded by portable technique and patient rotation. The cardiomediastinal silhouette is unremarkable. There is mild atherosclerotic calcification of the thoracic aorta. Foci of scarring versus atelectasis are present in both lungs. No airspace consolidation is seen typical for pneumonia and there is no large pleural effusion. No pneumothorax is identified. The skeletal structures are osteopenic. The bony thorax is grossly intact. IMPRESSION: No acute cardiopulmonary abnormality. Electronically signed by: Hank Barnhart M.D. 05/20/2017 3:31 PM Dictated Date/Time: 05/20/2017 3:30 PM
[2017-05-20 15:40] LABS: BASO % 0.4 %; BASO ABS # 0.03 K/uL (0-0.2); COMPLETE YES; EOS % 2.3 %; HEMATOCRIT 36.9 % (42-52); IG% 0.1 %; LYMPH % 20.5 %; LYMPH ABS # 1.49 K/uL (1.2-3.4); MEAN CELL VOLUME 92.7 fL (80-100); MEAN CORPUSCULAR HEMOGLOBIN 30.7 pg (25-34); MEAN CORPUSCULAR HGB CONC 33.1 g/dl (32-36); MEAN PLATELET VOLUME 9.6 fL (7.4-10.4); MONO % 5.4 %; NEUT % 71.3 %; PLATELET COUNT 258 K/uL (130-400); RED BLOOD COUNT 3.98 M/uL (4.7-6.1); WHITE BLOOD COUNT 7.26 K/uL (4.8-10.8)
[2017-05-20 15:49] LABS: PARTIAL THROMBOPLASTIN RATIO 0.9; PROTHROMBIN TIME (PATIENT) 10.7 SECONDS (9.0-12.0)
[2017-05-20 16:10] LABS: ALT/SGPT 26 U/L (12-78); AST/SGOT 18 U/L (15-37); BLOOD UREA NITROGEN 23 mg/dl (7-18); BUN/CREATININE RATIO 19.6 (10-20); CALCIUM 9.2 mg/dl (8.5-10.1); CARBON DIOXIDE 27 mmol/L (21-32); CHLORIDE 110 mmol/L (98-107); GLUCOSE 88 mg/dl (70-99); POTASSIUM 4.5 mmol/L (3.5-5.1); SODIUM 141 mmol/L (136-145)
[2017-05-20 16:16] LABS: ALKALINE PHOSPHATASE 74 U/L (45-117); CKMB/CK RATIO 3.8 (0-3.0)
[2017-05-20] MEDS ORDERED: ADENOSINE IV SOLN 3 MG/ML 20 ML VIAL ONE (16:50)
[2017-05-20] MEDS ORDERED: CLOPIDOGREL BISULFATE 300 MG TAB PO ONE (17:32)
--- NOTE | 2017-05-20 17:32 | Procedure Note ---
Pre-Mod Sedation Assessment General Date of Moderate Sedation: May 20, 2017. Vital Signs: Vital Signs Past 12 Hours Date Time Temp Pulse Resp B/P (MAP) Pulse Ox O2 Delivery O2 Flow Rate FiO2 05/20/17 17:23 60 16 140/84 (102) 95 Room Air 05/20/17 15:34 36.6 71 15 152/76 98 05/20/17 15:29 71 15 98 05/20/17 15:24 71 15 97 05/20/17 15:23 98 Room Air 05/20/17 15:19 67 14 05/20/17 15:14 74 21 05/20/17 15:13 73 05/20/17 15:07 152/76 05/20/17 14:56 36.6 70 18 106/63 99 Room Air Review Cardiovascular: regular rate, rhythm, no edema Abdomen: normal bowel sounds, non tender Lungs: chest non-tender, normal breath sounds Airway Class: II Pre-Sedation Airway Assessment Oral Cavity: WNL Able to Visualize Vocal Cords: No Short Thick Neck: No Hx of Sleep Apnea: No Smoking Status: Former Smoker Mallampati Classification: Class III ASA Classification: Class III Procedure Planning Contraindications-for Mod Sed: None Yes Notes The planned sedation has been discussed with the patient and consent obtained. I have identified the patient, determined the appropriateness of sedation and have assessed the patient immediately prior to the procedure. All medicine(s) and interventions are by my order.
--- NOTE | 2017-05-20 17:32 | Procedure Note ---
Post-Mod Sedation Assessment General Date of Moderate Sedation May 20, 2017. Vital Signs: Vital Signs Past 12 Hours Date Time Temp Pulse Resp B/P (MAP) Pulse Ox O2 Delivery O2 Flow Rate FiO2 05/20/17 17:23 60 16 140/84 (102) 95 Room Air 05/20/17 15:34 36.6 71 15 152/76 98 05/20/17 15:29 71 15 98 05/20/17 15:24 71 15 97 05/20/17 15:23 98 Room Air 05/20/17 15:19 67 14 05/20/17 15:14 74 21 05/20/17 15:13 73 05/20/17 15:07 152/76 05/20/17 14:56 36.6 70 18 106/63 99 Room Air Review - Discharge Criteria Vital Signs Stable: Yes Alert/Oriented/Conversant: Yes Returned to Baseline Mental St: Yes Nausea Absent/Minimal: Yes Pain/Discomfort/Absent/Minimal: Yes Normal/Baseline Respirations: Yes Active Bleeding?: No Pt Received D/C Instructions: N/A Prescriptions Given: None Specific Proced. D/C Criteria Distal Pulses Present (Cardiac: Yes Groin site assessed-Card Cath: N/A Voided Prior To Discharge: N/A Discharged Patients Adult Escort/Transportation: Yes
[2017-05-20] MEDS ORDERED: SODIUM CHLORIDE 0.9% 1000ML 1,000 ML IV SCH (17:45)
[2017-05-20] MEDS ORDERED: ACETAMINOPHEN 325 MG TAB PO PRN (17:45)
[2017-05-20] MEDS ORDERED: ONDANSETRON INJ 2 MG/ML 2 ML VIAL IV PRN (17:45)
--- NOTE | 2017-05-20 17:54 | Cardiac Catheterization ---
Procedure Note Procedure Date May 20, 2017. Pre-Procedure Diagnosis Angina, Positive Stress Test AUC Score 7 Post-Procedure Diagnosis Severe CAD, Successful PCI, Normal Intracardiac Pressures Procedure(s) Performed Coronary Angiography, Left Heart Cath, Drug Eluting Stent, Fractional Flow [place] [employer] Writer Erick Resaw Feeder(s) Lorin Estimated Blood Loss 20 Medication(s) Fentanyl, Heparin, Nitroglycerin, Versed, Lidocaine 1% Summary of Findings Indication: Positive Stress test, Angina Access: 6Fr Right Radial Artery Catheters: [place]; JR4 guide, EBU 3.5 guide Findings: LM - Mildly calcified, 10-20% distal stenosis LAD - Moderate proximal calcification, 50-60% focal proximal stenosis; patent mid segment stent, distal luminal irregularities. Ramus - 30% proximal stenosis. Circumflex - Small, non-dominant, luminal irregularities. RCA - Dominant, luminal irregularities proximally; 95% proximal small R-PDA; Angiographically normal R-PLB LVEDP - 11 FFR of proximal to mid LAD -- 0.82 -- PCI -- Antithrombotic therapy: Heparin, Clopidogrel Procedure: RCA cannulated with JR4 guide Manager Wound Care 50 wire passed across PDA lesions into distal vessel Proximal PDA lesion predilated with 2.0 compliant balloon Dilated lesion stented with 2.25 x 12 Resolute PAGE Stent post-dilated with stent balloon. IC vasodilators administered for spasm. Post procedure ABIODUN 3 flow, stent well expanded with minimal residual stenosis and no apparent cardiac complications. Arterial Closure: TR Band Summary: 1. Successful PCI of proximal R-PDA with one drug-eluting stent (2.25 x 12 Resolute) 2. Moderate, non-flow limiting 50-60% proximal LAD disease (FFR 0.82) 3. Normal intracardiac filling pressure Recommendations: To PCU for continued monitoring Reloaded with clopidogrel 300 mg in carpenter/labor Continue dual-antiplatelet therapy for 1 year Continue statin, and ASCVD risk factor modification Cardiac Rehab Hemodynamics Rest Ao: 120/45/73 Final Ao: 137/40/78 LV: 116/11 Recommendations PCI without planned CABG Specimens None Radiation Exposure (mGy) 5145 (Discussed with patient signs and symptoms of radiation injury) Contrast (mls) 205 Visi Fluids (cc crystalloids) 120 Drains None Anesthesia Moderate Procedural Complication(s) None Disposition PCU ACC Data Cardiac Status Clinical evaluation leading to the procedure CAD Presntation: Stable angina, Positive Stress Test Anginal Classification: CCS III Heart Failure: No, NYHA Class: CCS I Cardiogenic Shock w/in 24Hrs: No Cardiac Arrest w/in 24Hrs: No Imaging studies past 6 months: Yes Stress studies past 6 months: Yes Standard Exercise Stress Test: No Stress Echocardiogram: Yes - Positive, Risk/Extent of Ischemia (Intermediate) Coronary Anatomy Dominant: Right LAD (% Stenosis): Proximal (50-60) R PDA (% Stenosis): Proximal (95) Diagnostic Physician's Name: Jaden Suarez MD Closure Device Percutaneous Entry Location: Radial Closure Device: Radial Band Recommendations: PCI without planned CABG PCI Indication: Angina despite med therapy, + Stress Test Lesion Segment Name: PDA Culprit Artery: Yes Stenosis Prior to Rx (%): 95 Chronic Total Occlusion: No IVUS: No FFR: No Pre-Procedure ABIODUN Flow: 2 Previously Treated Lesion: No Lesion Complexity: Non-High/Non-C Lesion Length (mm): 12 Thrombus Present: No Bifurcation Lesion: No Guidewire Across Lesion: Yes Guidewire: Stenosis Post-Procedure (%): 0 Post-Procedure ABIODUN Flow: 3 Device(s) Deployed: Yes Intraprocedure Events Significant Dissection: No Perforation: No
[2017-05-20] MEDS ORDERED: IV FLUIDS COMPLETED PRN (18:00)
[2017-05-21 02:55] VITALS: BP 137/74; PULSE 67; TEMP 36.6; O2SAT 96
[2017-05-21 06:34] LABS: BASO % 0.4 %; BASO ABS # 0.02 K/uL (0-0.2); COMPLETE YES; EOS % 5.2 %; HEMATOCRIT 32.3 % (42-52); IG% 0.2 %; LYMPH % 24.5 %; LYMPH ABS # 1.22 K/uL (1.2-3.4); MEAN CELL VOLUME 92.8 fL (80-100); MEAN CORPUSCULAR HEMOGLOBIN 30.2 pg (25-34); MEAN CORPUSCULAR HGB CONC 32.5 g/dl (32-36); MEAN PLATELET VOLUME 9.5 fL (7.4-10.4); MONO % 6.6 %; NEUT % 63.1 %; PLATELET COUNT 211 K/uL (130-400); RED BLOOD COUNT 3.48 M/uL (4.7-6.1); WHITE BLOOD COUNT 4.98 K/uL (4.8-10.8)
[2017-05-21 07:01] LABS: BUN/CREATININE RATIO 23.9 (10-20); CALCIUM 8.1 mg/dl (8.5-10.1); CREATININE 0.95 mg/dl (0.60-1.40); POTASSIUM 4.2 mmol/L (3.5-5.1)
[2017-05-21 07:40] VITALS: BP 117/69; PULSE 64; TEMP 36.7; O2SAT 96
--- NOTE | 2017-05-21 08:02 | Discharge Instructions ---
Discharge Instructions Procedure Procedure Date: May 21, 2017. Reason for Visit: Chest Pain, S/P Cardiac Catheterization. Discharge Discharge Date: May 21, 2017. Discharge Diagnosis: Coronary Artery Disease Problem List: Medical Problems: (1) Chest pain Status: Acute Social History Problems: (1) S/P cardiac catheterization Status: Acute Last Recorded Wt (Kilograms): 66.300 Anesthesia Post Anesthesia Instructions: If you have had IV Sedation: * Do not drive today. * Resume driving when surgeon permits. * Do not make important decisions or sign legal documents today. * Call surgeon for: 1. Temperature elevations greater than 101 degrees F. 2. Uncontrollable pain. 3. Excessive bleeding. 4. Persistent nausea and vomiting. 5. Medication intolerance (nausea, vomiting or rash). * For nausea and vomiting use only clear liquids such as: tea, soda, bouillon until nausea subsides, then gradually increase diet as tolerated. * If you have any concerns or questions, call your surgeon's office. If physician is unavailable and it is an emergency, call 911 or go to the nearest emergency room. Instructions Activity Recommendations: limitations as noted below Recommended Home Diet: resume previous diet Allergies: Coded Allergies: No Known Allergies (Verified , 05/20/17) Follow Up Additional Instructions: ACTIVITY RECOMMENDATIONS: It is common to feel weak and fatigue for a few days. * Do not drive or operate any motorized equipment for the next 2 days. * Limit stair usage (2 or 3 trips a day only) for the next 2 days. * Do not lift anything heavier than 10 pounds for the next three days. * Do not engage in vigorous exercise or any sports for the next five days. * You may shower the day after your procedure, but do not immerse the area for three days. Cleanse the site gently with soap and water. SPECIAL CARE INSTRUCTIONS: * You may replace the pressure dressing or band-aid the morning after the procedure. * After your procedure, it is normal to have a small bruise or small lump at the site. Examine your site daily for any change in the bruise or lump, redness, swelling, drainage or numbness. Notify your doctor if any change. BLEEDING: * If there is a small amount of bleeding at the site, lie down and apply firm pressure with a clean cloth for ten minutes. When the bleeding stops, lie quietly keeping the procedure limb straight for six hours. Notify your doctor as soon as possible. * If the bleeding does not stop after ten minutes or if there is a large amount of bleeding or spurting, call 911 immediately. Continue to lie down and hold firm pressure until help arrives. SKIN IRRITATION: * You may experience some redness and/or swelling in the area where radiation was administered. If any skin irritation occurs, please contact your family physician. FOLLOW UP VISIT: Keep any scheduled doctor appointments. Follow-up with: Cardiology in 2-3 weeks. Ismael Zhu Recommendations: Call your doctor if: * Temperature above 101 degrees * Pain not relieved by pain medicine ordered * There is increased drainage or redness from any incision * You have any unanswered questions or concerns. Your Doctors Instructions noted above were prepared by provider Real Suarez. Patient Signature Section: Patient Instructions Signature Page Erik Farris Patient (or Guardian) Signature/Date: I have read and understand the instructions given to me by my caregivers. Caregiver/RN/Doctor Signature/Date: The above-named patient and/or guardian has received patient instructions on this date. + Original Patient Signature Page (only) stays with chart. Please make copy for patient.
[2017-05-21 08:21] VITALS: BP 117/69; PULSE 64; TEMP 36.7; O2SAT 96
[2017-05-21] MEDS ORDERED: ASPIRIN 81 MG ECTAB PO SCH (09:00)
[2017-05-21] MEDS ORDERED: CLOPIDOGREL BISULFATE 75 MG TAB PO SCH (09:00)
[2017-05-21] MEDS ORDERED: CALCIUM 600MG + VIT D 400 IU TAB PO SCH (09:00)
[2017-05-21] MEDS ORDERED: ATORVASTATIN 40 MG TAB PO SCH (09:00)
[2017-05-21] MEDS ORDERED: VALSARTAN 80 MG TAB PO SCH (09:00)
[2017-05-21] MEDS ORDERED: CEROVITE ADV FORMULA TAB PO SCH (09:00)
--- NOTE | 2017-05-27 16:53 | DISCHARGE SUMMARY ---
DIAGNOSES: 1. Coronary artery disease status post percutaneous coronary intervention with drug-eluting stent. 2. Dyslipidemia. 3. Hypertension. PROCEDURES: 1. Coronary angiography 2. FFR proximal LAD 3. PCI with drug-eluting stent placement to PDA. DISCHARGE MEDICATIONS: 1. Aspirin 81 mg. 2. Atorvastatin 40 mg. 3. Calcium / vitamin D. 4. Clopidogrel 75 mg daily. 5. Multivitamin 1 tab daily. 6. Valsartan 80 mg daily. 7. Fiber tablets. STOPPED MEDICATIONS: Atenolol 25 mg daily. HISTORY OF PRESENT ILLNESS: Mr. Farris is a very pleasant 87-year-old man with a history of prostate cancer, dyslipidemia and recently diagnosed coronary artery disease who was readmitted in the setting of persistent exertional angina. The patient was admitted a month previous in the setting of new dyspnea on exertion/chest tightness. He underwent a stress test on which patient had reduced exercise tolerance and was noted to have a stress induced inferior wall motion abnormality. He underwent a cardiac catheterization which showed severe LAD disease as well as severe disease in a very small PDA. The patient underwent drug-eluting stent placement to his LAD and was discharged home the following day. Since being home, he endorsed continued exertional chest pain and as a result returned to cardiology clinic the day of admission. Due to recurrent symptoms, decision was made to proceed with PCI. HOSPITAL COURSE: The patient underwent cardiac catheterization via right radial artery. Coronary angiography showed patent mid LAD stent. FFR of 50-60% proximal LAD lesion was borderline at 0.82. Decision was made to proceed with PCI of the right PDA and eventually a 2.25 x 12 mm Resolute drug-eluting stent was placed at the proximal portion of the PDA with good angiographic result. There were no apparent complications. Post-procedure he was admitted to telemetry for further observation. Overnight he had no evidence of arrhythmia. He remained chest pain free and on hospital day 2, he was discharged home. He will continue on aspirin and Plavix as well as his other prior cardiac regimen minus his atenolol due to bradycardia. PLAN: The patient will follow up in cardiology clinic with Dr. Suarez or physician itinerant teacher assistant Andrea Arzola in the next 2-3 weeks. ZANE
== END 2017-05-21 09:01 | disposition home or self-care (01) ==
LOC: C.EDB 14:55 → ENRESERV 16:34 → C.2T 17:57
PROVIDERS: ADMIT Internal Medicine Interventional Cardiology; ATTEND Internal Medicine Interventional Cardiology
DX: I25.10 Atherosclerotic heart disease of native coronary artery without angina pectoris (principal); I10 Essential (primary) hypertension; E78.5 Hyperlipidemia, unspecified; E53.8 Deficiency of other specified B group vitamins; Z87.891 Personal history of nicotine dependence; Z79.82 Long term (current) use of aspirin; Z85.46 Personal history of malignant neoplasm of prostate; Z90.79 Acquired absence of other genital organ(s); Z85.820 Personal history of malignant melanoma of skin; Z90.49 Acquired absence of other specified parts of digestive tract

== ENCOUNTER → 2017-06-04 | Outpatient (CLI) | payer OTHER ==
[~2017-06-04] MED LIST changes: -[UNRECOGNIZED DRUG - CODE] PO
== END | disposition home or self-care (01) ==
LOC: C.LABBC 09:23
PROVIDERS: ATTEND Urology
DX: Z00.00 Encounter for general adult medical examination without abnormal findings (principal); C61 Malignant neoplasm of prostate

== ENCOUNTER → 2018-02-10 | Outpatient (CLI) | payer OTHER ==
[~2018-02-10] MED LIST changes: -ASPEC81 PO; +ASPI-320 PO
[2018-02-10 13:11] LABS: BASO % 0.5 %; BASO ABS # 0.02 K/uL (0-0.2); EOS % 4.1 %; EOS ABS # 0.18 K/uL (0-0.5); HEMATOCRIT 33.6 % (42-52); HEMOGLOBIN 11.1 g/dL (14.0-18.0); LYMPH % 24.6 %; LYMPH ABS # 1.07 K/uL (1.2-3.4); MEAN CELL VOLUME 92.6 fL (80-100); MEAN CORPUSCULAR HEMOGLOBIN 30.6 pg (25-34); MEAN PLATELET VOLUME 9.1 fL (7.4-10.4); MONO % 5.7 %; MONO ABS # 0.25 K/uL (0.11-0.59); NEUT % 65.1 %; NEUT ABS # 2.83 K/uL (1.4-6.5); PLATELET COUNT 208 K/uL (130-400); RED CELL DISTRIBUTION WIDTH CV 12.5 % (11.5-14.5); RED CELL DISTRIBUTION WIDTH SD 42.7 fL (36.4-46.3); WHITE BLOOD COUNT 4.35 K/uL (4.8-10.8)
[2018-02-10 15:24] LABS: ALBUMIN 3.9 gm/dl (3.4-5.0); ALT/SGPT 23 U/L (12-78); AST/SGOT 23 U/L (15-37); BLOOD UREA NITROGEN 26 mg/dl (7-18); CALCIUM 8.7 mg/dl (8.5-10.1); CARBON DIOXIDE 26 mmol/L (21-32); CREATININE 1.09 mg/dl (0.60-1.40); GLUCOSE 97 mg/dl (70-99); POTASSIUM 4.3 mmol/L (3.5-5.1); SODIUM 140 mmol/L (136-145)
[2018-02-10 15:41] LABS: ALKALINE PHOSPHATASE 71 U/L (45-117); CHOLESTEROL 131 mg/dl (0-200); LDL CHOLESTEROL CALCULATED 39 mg/dl; TOTAL PROTEIN 7.5 gm/dl (6.4-8.2)
== END | disposition home or self-care (01) ==
LOC: C.LABBC 10:41
PROVIDERS: ATTEND Internal Medicine
DX: E78.5 Hyperlipidemia, unspecified (principal); D63.8 Anemia in other chronic diseases classified elsewhere; I25.10 Atherosclerotic heart disease of native coronary artery without angina pectoris; E53.8 Deficiency of other specified B group vitamins

== ENCOUNTER → 2018-06-09 | Outpatient (CLI) | payer OTHER | END | disposition home or self-care (01) | LOC: C.LABBC 09:51 | PROVIDERS: ATTEND Urology | DX: R39.9 Unspecified symptoms and signs involving the genitourinary system (principal) ==